=== PATIENT | male | born 1995 | race Caucasian/White ===

== ENCOUNTER 2017-02-18 16:42 | Emergency (ER) | payer BC, OTHER ==
[2017-02-18 17:00] VITALS: BP 127/87; PULSE 106; RESP 16; TEMP 98.1; O2SAT 98
--- NOTE | 2017-02-18 17:39 | EDPHY ---
H & P Stated Complaint: blood in stool x1mo, abd pain x2wk, fatigue Time Seen by Provider: 02/18/17 17:19 HPI/ROS: CHIEF COMPLAINT: Bloody stool HISTORY OF PRESENT ILLNESS: Patient is a 21-year-old man who comes to the emergency department concerned about bloody stool. He has had the symptoms for about a month. He has also had abdominal cramping for about 2 weeks. [facility] on . They are looking for irritable bowel or ulcerative colitis. He spoke with them today about his abdominal cramping and they recommended he come to the ER to be evaluated. He denies having any abdominal pain. He has not had a fever. REVIEW OF SYSTEMS: Constitutional: denies: chills, fever, recent illness, recent injury EENTM: denies: blurred vision, double vision, nose congestion Respiratory: denies: cough, shortness of breath Cardiac: denies: chest pain, irregular heart rate, lightheadedness, palpitations Gastrointestinal/Abdominal: See HPI Genitourinary: denies: dysuria, frequency, hematuria, pain Musculoskeletal: denies: joint pain, muscle pain Skin: denies: lesions, rash, jaundice, bruising Neurological: denies: headache, numbness, paresthesia, tingling, dizziness, weakness Hematologic/Lymphatic: denies: blood clots, easy bleeding, easy bruising Immunologic/allergic: denies: HIV/AIDS, transplant EXAM: GENERAL: Well-appearing, well-nourished and in no acute distress. HEAD: Atraumatic, normocephalic. EYES: Pupils equal round and reactive to light, extraocular movements intact, sclera anicteric, conjunctiva are normal. ENT: TMs normal, nares patent, oropharynx clear without exudates. Moist mucous membranes. NECK: Normal range of motion, supple without lymphadenopathy or JVD. LUNGS: Breath sounds clear to auscultation bilaterally and equal. No wheezes rales or rhonchi. HEART: Regular rate and rhythm without murmurs, rubs or gallops. ABDOMEN: Soft, nontender, normoactive bowel sounds. No guarding, no rebound. No masses appreciated. : The patient rectal exam is normal. No visible external hemorrhoid. Hemoccult negative. BACK: No CVA tenderness, no spinal tenderness, step-offs or deformities EXTREMITIES: Normal range of motion, no pitting or edema. No clubbing or cyanosis. NEUROLOGICAL: Cranial nerves II through XII grossly intact. Normal speech, normal gait. 5/5 strength, normal movement in all extremities, normal sensation PSYCH: Normal mood, normal affect. SKIN: Warm, dry, normal turgor, no visible rashes or lesions. Source: Patient Exam Limitations: No limitations - Personal History Current Tetanus/Diphtheria Vaccine: Yes Current Tetanus Diphtheria and Acellular Pertussis (TDAP): Yes - Medical/Surgical History Hx Asthma: No Hx Chronic Respiratory Disease: No Hx Diabetes: No Hx Cardiac Disease: No Hx Renal Disease: No Hx Cirrhosis: No Hx Alcoholism: No Hx HIV/AIDS: No Hx Splenectomy or Spleen Trauma: No Other PMH: HX: ADD, CONCUSSIONS - Family History Significant Family History: Hypertension - Social History Smoking Status: Never smoked Alcohol Use: Sober Drug Use: None Constitutional: Initial Vital Signs Temperature (C) 36.7 C 02/18/17 16:56 Heart Rate 106 H 02/18/17 16:56 Respiratory Rate 16 02/18/17 16:56 Blood Pressure 127/87 H 02/18/17 16:56 O2 Sat (%) 98 02/18/17 16:56 O2 Delivery Mode Room Air Allergies/Adverse Reactions: No Known Allergies Allergy (Verified 02/18/17 17:00) Home Medications: Medication Instructions Recorded Strattera 02/18/17 Medical Decision Making ED Course/Re-evaluation: The patient is well appearing. He has no abdominal tenderness on exam. No blood in his stool on rectal exam. He has a colonoscopy planned in 2 days. We will check his hematocrit. Otherwise he will likely be safe to go home to his GI appointment. 5:55 p.m. the patient's hematocrit is 40. His abdominal exam is benign. I will discharge him to follow up with GI who on . We discussed indications for returning. He agrees with this plan. Differential Diagnosis: Partial list of the Differential diagnosis considered include but were not limited to; anemia, internal hemorrhoid, external hemorrhoid, Crohn's disease, ulcerative colitis, irritable bowel and although unlikely based on the history and physical exam, I also considered dissection, ischemia, appendicitis, diverticulitis. I discussed these differential diagnoses and the plan with the patient as well as the usual and expected course. The patient understands that the diagnosis is provisional and that in medicine we are not always correct and that further workup is often warranted. Usual and customary warnings were given. All of the patient's questions were answered. The patient was instructed to return to the emergency department should the symptoms at all worsen or return, otherwise to followup with the physician as we discussed. - Data Points Laboratory Results: 02/18/17 17:46 POC Hgb 13.6 gm/dL L gm/dL (14.5-17.3) POC Hct 40 % L % (42.8-50.6) POC Sodium 139 mEq/L mEq/L (134-144) POC Potassium 3.7 mEq/L mEq/L (3.3-5.0) POC Chloride 99 mEq/L mEq/L (96-108) POC BUN 14 mg/dL mg/dL (7-23) POC Creatinine 0.8 mg/dL mg/dL (0.8-1.5) POC Glucose 95 mg/dL mg/dL (70-100) Point of Care Test Results: 02/18/17 17:46 POC Sodium 139 POC Potassium 3.7 POC Chloride 99 POC BUN 14 POC Creatinine 0.8 POC Glucose 95 Departure - Departure Disposition: Home, Routine, Self-Care Clinical Impression: Diarrhea Qualifiers: Diarrhea type: unspecified type Qualified Code(s): R19.7 - Diarrhea, unspecified Condition: Fair Instructions: Chronic Diarrhea (ED) Referrals: JLUIS ALVES [Other] - As per Instructions
== END 2017-02-18 18:16 | disposition home or self-care (01) ==
DX: R19.7 Diarrhea, unspecified (principal)
CPT/HCPCS: 82947-QW

== ENCOUNTER 2017-09-24 16:08 | Emergency (ER) | payer BC ==
--- NOTE | 2017-09-24 16:20 | EDPHY ---
H & P Time Seen by Provider: 09/24/17 16:10 HPI/ROS: CHIEF COMPLAINT: Vomiting and diarrhea HISTORY OF PRESENT ILLNESS: History of ulcerative colitis, on prednisone and Remicade, started azathioprine today. He developed worsening diarrhea and was having trouble making it to the bathroom. Since later this morning he has nausea vomiting and multiple episodes of intermittently bloody diarrhea. Feels dehydrated. Symptoms severe. Worse with oral intake. REVIEW OF SYSTEMS: Eye: no change in vision ENT: no sore throat Cardiac: no chest pain or syncope Pulmonary: no cough or SOB Abdomen: HPI Musculoskeletal: no back pain Skin: no rash Neuro: no headache Constitutional: no fever : no urinary symptoms A comprehensive 10 point review of systems is otherwise negative aside from elements mentioned in the history of present illness. PAST MEDICAL HISTORY: Ulcerative colitis Social history: EMS arrival, no alcohol General Appearance: Alert and conversant, cooperative. Eyes: No scleral icterus. ENT, Mouth: Normal mucous membranes. Respiratory: Normal respiratory effort, breath sounds equal, lungs are clear to auscultation. Cardiovascular: Regular rate and rhythm. Gastrointestinal: Abdomen is soft and non tender. No rebound or guarding, no McBurney's point tenderness. Neurological: Alert and oriented x3. Normally conversant. Face symmetric, normal movement and sensation in all extremities. Shaky. Skin: Warm and dry, no rashes. Musculoskeletal: No peripheral edema and no joint swelling. Psychiatric: Not agitated. Emergency Department course/MDM: EMS blood pressure systolic was in the 80s. IV normal saline hydration, labs. Discussion with GI. 170: Discussed with his sausage smoker Dr. Hankins who came to the ED, saw the patient in person, and requests IV hydration and discharge if the patient is willing, and able to take oral fluids. 185: Feeling better, wants to try and go home, taking oral fluids. No further vomiting. White blood cell count noted to be elevated likely because of prednisone. Patient and his sausage smoker think this is likely a reaction to Azathioprine. Prescription for Phenergan as this might work better than the Zofran which he says is not working very well at home. Smoking Status: Never smoked Constitutional: Initial Vital Signs Temperature (C) 36.4 C 09/24/17 16:08 Heart Rate 103 H 09/24/17 16:08 Respiratory Rate 18 09/24/17 16:08 Blood Pressure 138/93 H 09/24/17 16:08 O2 Sat (%) 97 09/24/17 16:08 O2 Delivery Mode Room Air Allergies/Adverse Reactions: No Known Allergies Allergy (Verified 09/24/17 16:23) Home Medications: Medication Instructions Recorded Strattera 02/18/17 Promethazine HCl [Phenergan 25mg 25 mg PO Q12 PRN #7 tab 09/24/17 (*)] Remicade Inj 100 mg (*) 09/24/17 azaTHIOprine 09/24/17 predniSONE 09/24/17 Medical Decision Making Differential Diagnosis: Differential for abdominal pain and diarrhea considered including but not limited to ulcerative colitis, bowel obstruction, intestinal perforation, appendicitis, infectious diarrhea, GI bleed. - Data Points Laboratory Results: Laboratory Results 09/24/17 16:30 09/24/17 16:30 09/24/17 09/24/17 16:30 16:30 WBC 24.18 10^3/uL H 10^3/uL (3.80-9.50) RBC 5.78 10^6/uL 10^6/uL (4.40-6.38) Hgb 17.0 g/dL g/dL (13.7-17.5) Hct 50.2 % % (40.0-51.0) MCV 86.9 fL fL (81.5-99.8) MCH 29.4 pg pg (27.9-34.1) MCHC 33.9 g/dL g/dL (32.4-36.7) RDW 14.5 % % (11.5-15.2) Plt Count 338 10^3/uL 10^3/uL (150-400) MPV 10.6 fL fL (8.7-11.7) Neut % (Auto) 90.2 % H % (39.3-74.2) Lymph % (Auto) 4.2 % L % (15.0-45.0) [place] % (Auto) 4.5 % % (4.5-13.0) Eos % (Auto) 0.2 % L % (0.6-7.6) Baso % (Auto) 0.4 % % (0.3-1.7) Nucleat RBC Rel Count 0.0 % % (0.0-0.2) Absolute Neuts (auto) 21.80 10^3/uL H 10^3/uL (1.70-6.50) Absolute Lymphs (auto) 1.01 10^3/uL 10^3/uL (1.00-3.00) Absolute Monos (auto) 1.09 10^3/uL H 10^3/uL (0.30-0.80) Absolute Eos (auto) 0.06 10^3/uL 10^3/uL (0.03-0.40) Absolute Basos (auto) 0.10 10^3/uL 10^3/uL (0.02-0.10) Absolute Nucleated RBC 0.00 10^3/uL 10^3/uL (0-0.01) Immature Gran % 0.5 % % (0.0-1.1) Immature Gran # 0.12 10^3/uL H 10^3/uL (0.00-0.10) Sodium 143 mEq/L mEq/L (134-144) Potassium 3.9 mEq/L mEq/L (3.5-5.2) Chloride 98 mEq/L mEq/L (97-110) Carbon Dioxide 22 mEq/l mEq/l (22-31) Anion Gap 23 mEq/L H mEq/L (8-16) BUN 10 mg/dL mg/dL (7-23) Creatinine 0.8 mg/dL mg/dL (0.7-1.3) Estimated GFR > 60 Glucose 138 mg/dL H mg/dL (70-100) Calcium 10.1 mg/dL mg/dL (8.5-10.4) Total Bilirubin 0.7 mg/dL mg/dL (0.1-1.4) Conjugated Bilirubin 0.2 mg/dL mg/dL (0.0-0.5) Unconjugated Bilirubin 0.5 mg/dL mg/dL (0.0-1.1) AST 28 IU/L IU/L (17-59) ALT 33 IU/L IU/L (21-72) Alkaline Phosphatase 121 IU/L IU/L (38-126) Total Protein 7.5 g/dL g/dL (6.3-8.2) Albumin 4.6 g/dL g/dL (3.5-5.0) Medications Given: Discontinued Medications Sodium Chloride (Ns) 1,000 mls @ 0 mls/hr IV EDNOW ONE; Wide Open PRN Reason: Protocol Stop: 09/24/17 16:49 Last Admin: 09/24/17 16:59 Dose: 1,000 mls Sodium Chloride (Ns) 1,000 mls @ 0 mls/hr IV EDNOW ONE; Wide Open PRN Reason: Protocol Stop: 09/24/17 16:49 Last Admin: 09/24/17 17:00 Dose: 1,000 mls Ondansetron HCl (Zofran) 4 mg IVP EDNOW ONE Stop: 09/24/17 16:50 Last Admin: 09/24/17 17:01 Dose: 4 mg Departure - Departure Disposition: Home, Routine, Self-Care Clinical Impression: Ulcerative colitis Qualifiers: Ulcerative colitis location: unspecified ulcerative colitis location Digestive disease complication type: without complication Qualified Code(s): K51.90 - Ulcerative colitis, unspecified, without complications Condition: Good Instructions: Ulcerative Colitis (ED) Referrals: Sincere Hankins MD, FACG [Medical Doctor] - As per Instructions Prescriptions: Promethazine HCl [Phenergan 25mg (*)] 25 mg PO Q12 PRN #7 tab PRN Reason: Nausea/Vomiting, Use 1st
[2017-09-24 16:26] VITALS: TEMP 97.5
[2017-09-24] MEDS ORDERED: NS 1,000 ML IV ONE ×2 (16:48)
[2017-09-24] MEDS ORDERED: ONDANSETRON 4 MG/2 ML VIAL IVP ONE (16:49)
[2017-09-24 16:58] LABS: % IMMATURE GRANULYOCYTES 0.5 % (0.0-1.1); ABSOLUTE IMMATURE GRANULOCYTES 0.12 10^3/uL (0.00-0.10); ADD DIFF? NO; ADD MORPH? NO; ADD SCAN? NO; ATYPICAL LYMPHOCYTE FLAG 10 (0-99); FRAGMENT RBC FLAG 0 (0-99); HEMATOCRIT 50.2 % (40.0-51.0); LEFT SHIFT FLG 90 (0-99); LIPEMIA HEMOLYSIS FLAG 90 (0-99); MEAN CELL HEMOGLOBIN 29.4 pg (27.9-34.1); MEAN CELL HEMOGLOBIN CONCENTR. 33.9 g/dL (32.4-36.7); MEAN CELL VOLUME 86.9 fL (81.5-99.8); MEAN PLATELET VOLUME 10.6 fL (8.7-11.7); PLATELET CLUMPS FLAG 0 (0-99); PLATELET COUNT 338 10^3/uL (150-400); RED BLOOD CELL COUNT 5.78 10^6/uL (4.40-6.38); RED CELL DISTRIBUTION WIDTH 14.5 % (11.5-15.2)
[2017-09-24 16:59] LABS: ALANINE AMINOTRANSFERASE 33 IU/L (21-72); ALBUMIN 4.6 g/dL (3.5-5.0); ALKALINE PHOSPHATASE 121 IU/L (38-126); ANION GAP 23 mEq/L (8-16); ASPARTATE AMINOTRANSFERASE 28 IU/L (17-59); BILIRUBIN,TOTAL 0.7 mg/dL (0.1-1.4); BILIRUBIN-CONJUGATED 0.2 mg/dL (0.0-0.5); BILIRUBIN-UNCONJUGATED 0.5 mg/dL (0.0-1.1); CALCIUM 10.1 mg/dL (8.5-10.4); CARBON DIOXIDE 22 mEq/l (22-31); CHLORIDE 98 mEq/L (97-110); CREATININE 0.8 mg/dL (0.7-1.3); GLOMERULAR FILTRATION RATE > 60; GLUCOSE 138 mg/dL (70-100); POTASSIUM 3.9 mEq/L (3.5-5.2); SODIUM 143 mEq/L (134-144); TOTAL PROTEIN 7.5 g/dL (6.3-8.2)
[2017-09-24 19:54] VITALS: BP 109/54; PULSE 104; RESP 15; O2SAT 95
== END 2017-09-24 19:54 | disposition home or self-care (01) ==
LOC: EDUNIT#
DX: K51.90 Ulcerative colitis, unspecified, without complications (principal); E86.9 Volume depletion, unspecified
CPT/HCPCS: 96374; J2405